=== PATIENT | female | born 1995 | race Caucasian/White ===

== ENCOUNTER 2017-11-07 15:37 | Emergency (ER) | payer BC, OTHER ==
[~2017-11-07] VITALS: Ht 180.3 cm; Wt 104.3 kg
[~2017-11-07 15:37] MED LIST: ADVIL200 MG PO; AMOXICILLIN875 MG PO; BENADRYL25 MG PO; CLARITIN10 M2 PO; CLARITIN10 MG PO; IBUPROFEN600 MG PO; IBUPROFEN800 MG PO; METFORMIN HCL500 MG PO; MULTIVITAMINS1 EAC7 PO; NAPROXEN500 MG PO; NICORETTE2 MG MM; NORCO 5-325 TA1 EACH PO; PERCOCET 5-3251 EACH PO; PREDNISONE20 MG PO; TYLENOL WITH C1 EACH PO; VITAMIN D250000 UNIT PO; ZITHROMAX250 MG PO; ZYRTEC10 MG PO
[2017-11-07] MEDS ORDERED: PNV PRENATAL P1 EACH PO (15:53)
[2017-11-07] MEDS ORDERED: RANITIDINE HCL300 M1 PO (15:54)
[2017-11-07] MEDS ORDERED: FLUOXETINE HCL20 MG PO (15:54)
--- OUTSIDE RECORDS SUMMARY | 2017-11-07 16:29 | XMS | Encounter Summary ---
Demographics + + + | Address | [address] | | | [place] [address] | + + + | Home Phone | | + + + | Preferred Language | Unknown | + + + | Marital Status | Single | + + + | Sabianist Affiliation | Latter-Day | + + + | Race | White | + + + | Ethnic Group | Not or | + + + Author + + + | Author | [facility] | + + + | Organization | [facility] | + + + | Address | Unknown | + + + | Phone | Unavailable | + + + Support + + +---------+ + | Name | Relationship | Address | Phone | + + +---------+ + | JAEL FREIRE | ECON | Unknown | | + + +---------+ + Care Team Providers + +------+ + | Care Business Director Name | Role | Phone | + +------+ + | Frederick Byrd DO | PCP | | + +------+ + Reason for Visit +--------+ + | Reason | Comments | +--------+ + | Rash | | +--------+ + Encounter Details +--------+ + + + + | Date | Type | Department | Care Team | Description | +--------+ + + + + | 09/23/ | Emergency | [facility] | Maddy Robertson PA | Cellulitis of left | | 2018 | | Emergency Department | [address] | axilla (Primary Dx); | | | | [address] [facility] | [facility] [address] | Abscess of left | | | | [place] | [address] | axilla | | | | [address] | [place] [address] | | | | | [phone] | [phone] | | | | | | | | +--------+ + + + + Social History + +-------+ +--------+------+ | Tobacco Use | Types | Packs/Day | Years | Date | | | | | Used | | + +-------+ +--------+------+ | Current Every Day | | 0.5 | | | | Smoker | | | | | + +-------+ +--------+------+ + +---+---+---+ | Smokeless Tobacco: | | | | | Current User | | | | + +---+---+---+ + + +---------+ + | Alcohol Use | Drinks/We | oz/Week | Comments | | | ek | | | + + +---------+ + | No | | | | + + +---------+ + + + + | Sex Assigned at | Date Recorded | | | | + + + | Not on file | | + + + as of this encounter Last Filed Vital Signs + + + + | Vital Sign | Reading | Time Taken | + + + + | Blood Pressure | 139/74 | 09/23/2017 5:47 PM PST | + + + + | Pulse | 87 | 09/23/2017 5:47 PM PST | + + + + | Temperature | 36.8 C (98.3 F) | 09/23/2017 5:47 PM PST | + + + + | Respiratory Rate | 16 | 09/23/2017 5:47 PM PST | + + + + | Oxygen Saturation | 98% | 09/23/2017 5:47 PM PST | + + + + | Inhaled Oxygen | - | - | | Concentration | | | + + + + | Weight | - | - | + + + + | Height | - | - | + + + + | Body Mass Index | - | - | + + + + in this encounter Discharge Instructions Maddy Robertson PA - 09/23/2017Formatting of this note may be different from the original. It was a pleasure to see you today. You have been diagnosed with: ED Diagnosis(es) Diagnosis Description Comment Cellulitis of left axilla Cellulitis of left axilla Abscess of left axilla Abscess of left axilla The following attachments cannot be sent through Care Everywhere.Abscess, Incision And Elvira pacheco (Burkinan)in this encounter Medications at Time of Discharge + + +---------+---------+ + + | Medication | Sig. | Disp. | Refills | Start | End Date | | | | | | Date | | + + +---------+---------+ + + | FLUoxetine | | | 1 | 05/29/20 | | | (PROZAC) 10 mg | | | | 17 | | | capsule | | | | | | + + +---------+---------+ + + | | Take 1 tablet by | 8 | 0 | 09/23/19 | | | HYDROcodone-acetamin | mouth every 6 hours | tablet | | 18 | | | ophen (NORCO) 5-325 | as needed for Pain | | | | | | mg per | | | | | | | tabletIndications: | | | | | | | Cellulitis of left | | | | | | | axilla | | | | | | + + +---------+---------+ + + | ibuprofen | Take 1 tablet (800 | 30 | 0 | 07/06/20 | | | (ADVIL;MOTRIN) 800 | mg total) by mouth | tablet | | 17 | | | mg tablet | every 8 hours as | | | | | | | needed for Pain | | | | | + + +---------+---------+ + + | metFORMIN | | | 3 | 05/29/20 | | | (GLUCOPHAGE) 500 mg | | | | 17 | | | tablet | | | | | | + + +---------+---------+ + + | naproxen | Take 1 tablet (500 | 20 | 0 | 09/23/19 | | | (NAPROSYN) 500 mg | mg total) by mouth 2 | tablet | | 18 | | | tabletIndications: | times daily (with | | | | | | Cellulitis of left | meals) | | | | | | axilla | | | | | | + + +---------+---------+ + + | ranitidine | | | 1 | 04/30/20 | | | (ZANTAC) 300 mg | | | | 17 | | | capsule | | | | | | + + +---------+---------+ + + | clindamycin | Take 3 capsules (450 | 90 | 0 | 09/23/19 | | | (CLEOCIN) 150 mg | mg total) by mouth | capsule | | 18 | 8 | | capsuleIndications: | 3 times daily for 10 | | | | | | Cellulitis of left | days | | | | | | axilla | | | | | | + + +---------+---------+ + + as of this encounter Progress Notes Luna Finney CrMA - 09/23/2017 7:11 PM PSTThe wound culture grew Staphylococcus aureus ,w hich is susceptible to clindamycin, for which the patient was prescribed in the ED. No furth er action is necessary. Luna Finney CMA ([facility]) TPAD program (Test Pending at Discharge) [facility] [phone] this encounter Miscellaneous Notes ED Notes - Misty Oliveira CNA - 09/23/2017 7:06 PM PSTAbscess on left axilla diana ssed with dry gauze. ED Provider Notes - Maddy Robertson PA - 09/23/2017 6:32 PM PSTAssocia jenise Order(s): INCISION AND DRAINAGE (ED)Post-Procedure Diagnose(s): Abscess of left axillaFo rmatting of this note may be different from the original. Chief Complaint: Rash History: Rash This is a new problem. The current episode started 2 days ago. The problem has been gradual ly worsening. The problem is associated with an unknown factor. There has been no fever. Aff ected Location: left axilla and back. The pain is at a severity of 8/10. The pain has been c onstant since onset. Associated symptoms include itching and pain. Associated symptoms comme nts: Erythematous. She has tried antibiotic cream for the symptoms. The treatment provided n o relief. Home Medications Medication Sig FLUoxetine (PROZAC) 10 mg capsule ibuprofen (ADVIL;MOTRIN) 800 mg tablet Take 1 tablet (800 mg total) by mouth every 8 hours as needed for Pain metFORMIN (GLUCOPHAGE) 500 mg tablet ranitidine (ZANTAC) 300 mg capsule Allergies: Amoxicillin and Sulfa (sulfonamide antibiotics) No past medical history on file. No past surgical history on file. SH: The patient reports that she has been smoking. She has been smoking about 0.50 packs per day. She uses smokeless tobacco. She reports that she uses drugs, including Marijuana. S he reports that she does not drink alcohol. FH: No history of MRSA ROS: Review of Systems Constitutional: Negative for appetite change. HENT: Negative for congestion. Eyes: Negative for visual disturbance. Respiratory: Negative for shortness of breath. Cardiovascular: Negative for chest pain. Gastrointestinal: Negative for blood in stool. Endocrine: Negative for cold intolerance and heat intolerance. Genitourinary: Negative for difficulty urinating. Musculoskeletal: Negative for gait problem. Skin: Positive for itching and rash. Negative for color change. Allergic/Immunologic: Negative for immunocompromised state. Neurological: Negative for speech difficulty. Hematological: Does not bruise/bleed easily. Psychiatric/Behavioral: Negative for confusion. Physical Exam: BP 139/74 | Pulse 87 | Temp 36.8 C (98.3 F) | Resp 16 | SpO2 98% Physical Exam Constitutional: She is oriented to person, place, and time. She appears well-developed and well-nourished. She appears distressed. HENT: Head: Normocephalic. Nose: Nose normal. Eyes: Right eye exhibits no discharge. Left eye exhibits no discharge. No scleral icterus. Neck: Normal range of motion. Neck supple. Cardiovascular: Normal rate, regular rhythm and intact distal pulses. Pulmonary/Chest: Effort normal and breath sounds normal. No respiratory distress. She has n o wheezes. Abdominal: Soft. There is no tenderness. Musculoskeletal: Normal range of motion. She exhibits no tenderness. Lymphadenopathy: She has no cervical adenopathy. Neurological: She is alert and oriented to person, place, and time. Coordination normal. Skin: Skin is warm and dry. Multiple maculopapular erythematous lesions in left axilla with one larger 2cm x 1.5cm rais ed, erythematous, fluctuant, and warm lesion at 11 o'clock. No active bleeding or purulence. Psychiatric: She has a normal mood and affect. Her behavior is normal. Nursing note and vitals reviewed. Procedures: Incision and Drainage (ED) Date/Time: 09/23/2017 6:56 PM Performed by: MADDY ROBERTSON Authorized by: MADDY ROBERTSON Consent: Verbal consent obtained. Risks and benefits: risks, benefits and alternatives were discussed Consent given by: patient Type: abscess Location: left axilla. Anesthesia: local infiltration Anesthesia: Local Anesthetic: lidocaine 1% without epinephrine Anesthetic total: 3 mL Scalpel size: 11 Incision type: single straight Complexity: simple Drainage: purulent and bloody Drainage amount: moderate Packing material: 1/4 in gauze Patient tolerance: Patient tolerated the procedure well with no immediate complications Decision Support: 22 yo female here with concern for a rash in her left axilla that is red and painful. One lesion appears to be getting more painful and erythematous. No history of abscesses or MRSA, but her boyfriend is a MRSA carrier. One lesion found to be an abscess, which was I&D'd tod ay with culture pending. Will cover for MRSA. Return in 2 days for wound check and repack. I feel the patient is stable for discharge home. I have discussed the current diagnoses and plan with patient/guardian thoroughly. There are no further concerns or questions at this t bobby and patient/guardian expressed understanding of current hypotheses, plan, and potential changes in the future. Reviewed rationale for prescriptions and importance of monitoring condition for possible ad verse reactions. Encouraged discussion with pharmacist and reviewing prescription precaution s prior to starting new medications. Red flags warranting urgent or ED follow up discussed, and patient/guardian verbalized unde rstanding. ED Course: Pressure dressing applied. Diagnosis and Disposition: ED Diagnosis(es) Diagnosis Description Comment Cellulitis of left axilla Cellulitis of left axilla Abscess of left axilla Abscess of left axilla ED Triage Notes - Nando Kidd RN - 09/23/2017 5:46 PM PSTPt c/o rash under left arm that started two days ago. Pt is raised and painful.in this encounter Plan of Treatment Not on fileas of this encounter Procedures + +--------+ + + + | Procedure Name | Priori | Date/Time | Associated Diagnosis | Comments | | | ty | | | | + +--------+ + + + | INCISION AND | Routin | 09/23/2017 | Abscess of left | Results for this | | DRAINAGE (ED) | e | 6:32 PM | axilla | procedure are in the | | | | PST | | results section. | + +--------+ + + + in this encounter Results Culture Drainage/Exudate w Gram Stain (09/23/2017 6:59 PM) + + + + | Component | Value | Ref Range | + + + + | Final Report | Heavy growth Staphylococcus aureus | | | | !!!NOTE - This Staph aureus is a MRSA!!! | | | | (A) | | + + + + | Gram Stain | Gram stain performed at [facility], | | | | [address] [facility] [place]. 0-2 | | | | Mononuclear Cells (Lymphocytes, Monocytes) | | | | 1-3 Segmented Neutrophils ++ Gram positive | | | | cocci | | + + + + | Organism ID | Staphylococcus aureusComment: Microbiology | | | | tests performed at [facility] | | | | Services, [address] [facility], [place], [place] | | | | unless otherwise specified. | | + + + + + + + | Specimen | Performing Laboratory | + + + | Culture Specimen - | HL7 INTERFACE INBOUND RESULT | | Abscess | | + + + + + +--------+ + | Organism | Antibiotic | Method | Susceptibility | + + +--------+ + | Staphylococcus | Cefazolin | | Resistant | | aureus | | | | + + +--------+ + | Staphylococcus | Clindamycin | | Sensitive | | aureus | | | | + + +--------+ + +---+ + | | Comment: This | | | organism does not | | | have inducible | | | Clindamycin | | | resistance. | +---+ + + + +---+ + | Staphylococcus | Erythromycin | | Resistant | | aureus | | | | + + +---+ + | Staphylococcus | Oxacillin/Nafcillin | | Resistant | | aureus | | | | + + +---+ + | Staphylococcus | Trimethoprim/Sulfame | | Sensitive | | aureus | thoxazole | | | + + +---+ + | Staphylococcus | Tetracycline | | Sensitive | | aureus | | | | + + +---+ + | Staphylococcus | Vancomycin | | 1: Sensitive | | aureus | | | | + + +---+ + +---+ + | | Comment: Studies | | | show that MRSA's | | | with vancomycin | | | JOVANA's greater than 1 | | | microgram/ml may | | | need higher doses | | | for treatment. | +---+ + Incision and Drainage (ED) (09/23/2017 6:32 PM) + + | Narrative | + + | Maddy Robertson PA 09/24/2017 9:24 PM Incision and Drainage (ED) | | Date/Time: 09/23/2017 6:56 PM Performed by: MADDY ROBERTSON Authorized by: MADDY ROBERTSON | | Yuli Consent: Verbal consent obtained. Risks and benefits: risks, benefits and | | alternatives were discussed Consent given by: patient Type: abscess Location: left | | axilla. Anesthesia: local infiltration Anesthesia: Local Anesthetic: lidocaine 1% | | without epinephrine Anesthetic total: 3 mL Scalpel size: 11 Incision type: single | | straight Complexity: simple Drainage: purulent and bloody Drainage amount: | | moderate Packing material: / in gauze Patient tolerance: Patient tolerated the | | procedure well with no immediate complications | + + ED INFORMATION EXCHANGE (09/23/2017 5:45 PM) + + + + | Component | Value | Ref Range | + + + + | TALAT PID | ED Information Exchange | | + + + + | [facility] Care Guideline | NO | | + + + + + + + | Specimen | Performing Laboratory | + + + | | [facility]AL[facility] | + + + + + | Narrative | + + | ED/UCC VISIT TRACKING (3 MO.) Visit | | Date Location City | | ST Type Dx/Complaint | | -------- | | ------- ---- 09/23/2017 17:44 [facility] | | [facility] [place] Emergency -RASH 07/17/2017 | | 15:30 [facility] [place] Emergency -Cutaneous | | abscess of abdominal wall | | | | -INSECT BITE 07/06/2017 | | 19:09 [facility] [place] Emergency -Dysmenorrhea, | | unspecified | | | | -Cysts ED VISIT COUNT (12 MO.) | | Visits Location ------ --------- 4 [facility] | | [address] Total Note: Visits indicate | | total known visits. | | CARE | | PROVIDERS | | Name | | | | Phone Type Service Dates | | ---- | | | | ----- ---- ALIDA | | MICHAEL | | Unknown Primary Care Unknown - Current [facility] | | [facility] at [facility] | | CENTER Unknown Primary Care Unknown - Current | | [facility]AL[facility] has no Care Guidelines for this patient. | + + in this encounter Visit Diagnoses + + | Diagnosis | + + | Cellulitis of left axilla - Primary | + + | Cellulitis and abscess of upper arm and forearm | + + | Abscess of left axilla | + + | Cellulitis and abscess of upper arm and forearm | + + Admitting Diagnoses + + | Diagnosis | + + | Abscess of left axilla | + + | Cellulitis and abscess of upper arm and forearm | + + | Cellulitis of left axilla | + + | Cellulitis and abscess of upper arm and forearm | + +"
--- OUTSIDE RECORDS SUMMARY | 2017-11-07 16:29 | XMS | Clinical Summary ---
Demographics + + + | Address | [address] | | | [place] [address] | + + + | Home Phone | | + + + | Preferred Language | Unknown | + + + | Marital Status | Single | + + + | Nondenominational Affiliation | Jainism | + + + | Race | [...] Team Providers + +------+ + | Care Shellfish Processing Laborer Name | Role | Phone | + +------+ + | Frederick Byrd DO | PP | | + +------+ + Allergies + + + + + + | Active Allergy | Reactions | Severity | Noted | Comments | | | | | Date | | + + + + + + | Amoxicillin | Hives | Medium | 07/17/20 | | | | | | 17 | | + + + + + + | Sulfa (Sulfonamide | Other (See Comments) | Low | 07/17/20 | | | Antibiotics) | | | 17 | | + + + + + + Current Medications + + +--------+---------+------+------+-------+ | Prescription | Sig. | Disp. | Refills | Star | End | Statu | | | | | | t | Date | s | | | | | | Date | | | + + +--------+---------+------+------+-------+ | FLUoxetine | | | 1 | 09/2 | | Activ | | (PROZAC) 10 mg | | | | 7/20 | | e | | capsule | | | | 17 | | | + + +--------+---------+------+------+-------+ | ranitidine | | | 1 | 08/2 | | Activ | | (ZANTAC) 300 mg | | | | 9/20 | | e | | capsule | | | | 17 | | | + + +--------+---------+------+------+-------+ | metFORMIN | | | 3 | 09/2 | | Activ | | (GLUCOPHAGE) 500 mg | | | | 7/20 | | e | | tablet | | | | 17 | | | + + +--------+---------+------+------+-------+ | ibuprofen | Take 1 tablet (800 | 30 | 0 | 11/0 | | Activ | | (ADVIL;MOTRIN) 800 | mg total) by mouth | tablet | | 4/20 | | e | | mg tablet | every 8 hours as | | | 17 | | | | | needed for Pain | | | | | | + + +--------+---------+------+------+-------+ | | Take 1 tablet by | 8 | 0 | 01/2 | | Activ | | HYDROcodone-acetamin | mouth every 6 hours | tablet | | 2/20 | | e | | ophen (NORCO) 5-325 | as needed for Pain | | | 18 | | | | mg per | | | | | | | | tabletIndications: | | | | | | | | Cellulitis of left | | | | | | | | axilla | | | | | | | + + +--------+---------+------+------+-------+ | naproxen | Take 1 tablet (500 | 20 | 0 | 01/2 | | Activ | | (NAPROSYN) 500 mg | mg total) by mouth 2 | tablet | | 2/20 | | e | | tabletIndications: | times daily (with | | | 18 | | | | Cellulitis of left | meals) | | | | | | | axilla | | | | | | | + + +--------+---------+------+------+-------+ Active Problems Not on file Encounters +--------+ + + + + | Date | Type | Specialty | Care Team | Description | +--------+ + + + + | 09/23/ | Emergency | | Maddy Tolbert PA | Cellulitis of left | | 2017 | | | | axilla (Primary Dx); | | | | | | Abscess of left | | | | | | axilla | +--------+ + + + + from Last 3 Months Social History + +-------+ +--------+------+ | Tobacco [...] on file | | + + + Last Filed Vital Signs + + + [...] + + + + | Weight | 99.1 kg (218 lb 7.6 | 06/14/2017 2:20 PM PDT | | | oz) | | + + + + | Height | 177.8 cm (5' 10") | 07/17/2017 3:50 PM PST | + + + + | Body Mass Index | 31.35 | 06/14/2017 2:20 PM PDT | + + + + Plan of Treatment + + + + + | Health Maintenance | Due Date | Last Done | Comments | + + + + + | IMM HPV (1 - | | | | | Female 3 Dose | 8 | | | | Series) | | | | + + + + + | Tobacco Cessation | | | | | Counseling | 9 | | | + + + + + | HIV Screening | | | | | | 2 | | | + + + + + | IMM MCV4 () | | | | | | 3 | | | + + + + + | Tetanus | | | | | | 6 | | | + + + + + | IMM Influenza (#1) | | | | | | 7 | | | + + + + + | GC/Chlamydia | | 07/06/2017 | | | Screening | 8 | | | + + + + + Procedures + +--------+ + + + | [...] section. | + +--------+ + + + from Last 3 Months Results Culture Drainage/Exudate w Gram Stain (09/23/2017 [...] Gram Stain | Gram stain performed at [facility], | | | | [address] [address] [facility], [place]. 0-2 | | | | Mononuclear Cells (Lymphocytes, Monocytes) | | | | 1-3 Segmented Neutrophils ++ Gram positive | | | | cocci | | + + + + | Organism ID | Staphylococcus aureusComment: Microbiology | | | | [facility] | | | | Services, [address], [place] | | | | unless otherwise [...] | Narrative | + + | Maddy Tolbert PA 09/24/2017 9:24 PM Incision and Drainage (ED) | | Date/Time: 09/23/2017 6:56 PM Performed by: MADDY TOLBERT Authorized by: MADDY TOLBERT | Yuli Consent: Verbal consent obtained. Risks [...] Drainage amount: | | moderate Packing material: 09/05 in gauze Patient tolerance: Patient tolerated the [...] ------- ---- 09/23/2017 17:44 [facility] | | [place] Emergency -RASH 07/17/2017 | | 15:30 [facility] [place] Emergency -Cutaneous | | abscess of abdominal wall | | | | -INSECT BITE 07/06/2017 | | 19:09 [facility] [place] Emergency -Dysmenorrhea, | | unspecified | | | | -Cysts ED VISIT COUNT (12 MO.) | | Visits Location ------ --------- 4 [facility] [place] | | [address] [facility] [address] Total Note: Visits indicate | | total known visits. | | CARE | | PROVIDERS | | Name | | | | Phone Type Service Dates | | ---- | | | | ----- ---- AL[place] | | MICHAEL | | Unknown Primary Care Unknown - Current [facility] | | [facility] at [facility] | | [facility] Unknown Primary Care Unknown - Current | | [facility] has no Care Guidelines for this patient. | + + from Last 3 Months Insurance + +--------+ +--------+ + + | Payer | Benefi | Subscriber | Type | Phone | Address | | | t Plan | ID | | | | | | / | | | | | | | Group | | | | | + +--------+ +--------+ + + | BLUE CROSS | BLUE | [id number] | PPO | [phone] | [id number] | | | CROSS | [address] | | [phone] | [place] | | | [place] | | | | [phone] | | | PPP/PP | | | | | | | O | | | | | | | NETWOR | | | | | | | K | | | | | + +--------+ +--------+ + + | [place] | MEDICA | [id number] | Medica | [phone] [address] [address] | | | [place] | | id | [phone] | [place] [address] | | | DMAP | | | | | + +--------+ +--------+ + + + +--------+ +--------+ + + | Guarantor Name | Accoun | Relation to | Date | Phone | Billing Address | | | t Type | Patient | of | | | | | | | | | | + +--------+ +--------+ + + | MELLISA | Person | Self [birth year] Home: | [address] | | [place] | jj/Stevie | | 1994 | [phone] | [place] [address] | | | raffi | | | [phone] | | + +--------+ +--------+ + + Advance Directives Patient has advance directives. For more information, please contact:[employer] [place] [address]
--- OUTSIDE RECORDS SUMMARY | 2017-11-07 16:29 | XMS | Encounter Summary ---
Demographics + + + | Address | [address] | | | [place] [address] | + + + | Home Phone | | + + + | Preferred Language | Unknown | + + + | Marital Status | Single | + + + | Adventism Affiliation | Zoroastrian | + + + | Race | [...] Team Providers + +------+ + | Care Agricultural Production Engineer Name | Role | Phone | + [...] + | 09/23/ | Emergency | [facility] | Maddy Robertson PA | Cellulitis of left | | 2018 | | Emergency Department | [address] | axilla (Primary Dx); | | | | [address] [facility] [place] | [facility] [address] | Abscess of left | | | | [place] | [address] | axilla | | | | [address] | [place] [address] | | | | | [phone] | [phone] | | | | | | | [...] through Care Everywhere.Abscess, Incision And Elvira pacheco (Icelandic)in this encounter Medications at Time of Discharge [...] er action is necessary. Luna Finney CMA ([facility]) TPAD program (Test Pending at Discharge) [facility] [phone] this encounter Miscellaneous Notes [...] Gram Stain | Gram stain performed at [facility], | | | | [address] [facility] [place]. 0-2 | | | | Mononuclear Cells (Lymphocytes, Monocytes) | | | | 1-3 Segmented Neutrophils ++ Gram positive | | | | cocci | | + + + + | Organism ID | Staphylococcus aureusComment: Microbiology | | | | tests performed at [facility] | | | | Services, [address] [facility], [place], [place] | | | | unless otherwise [...] ------- ---- 09/23/2017 17:44 [facility] | | [place] Emergency -RASH 07/17/2017 | | 15:30 [facility] [place] Emergency -Cutaneous | | abscess of abdominal wall | | | | -INSECT BITE 07/06/2017 | | 19:09 [facility] [place] Emergency -Dysmenorrhea, | | unspecified | | | | -Cysts ED VISIT COUNT (12 MO.) | | Visits Location ------ --------- 4 [facility] | | [address] Total Note: Visits indicate | | total known visits. | | CARE | | PROVIDERS | | Name | | | | Phone Type Service Dates | | ---- | | | | ----- ---- ALIDA | | MICHAEL | | Unknown Primary Care Unknown - Current [facility] E | | [facility] at [facility] | | CENTER Unknown Primary Care Unknown [...]
--- OUTSIDE RECORDS SUMMARY | 2017-11-07 16:29 | XMS | Clinical Summary ---
Demographics + + + | Address | [address] | | | [place] [address] | + + + | Home Phone | | + + + | Preferred Language | Unknown | + + + | Marital Status | Single | + + + | Orthodox Affiliation | Nondenominational | + + + | Race | [...] Team Providers + +------+ + | Care Marker Delivery Name | Role | Phone | + [...] Gram Stain | Gram stain performed at [facility], | | | | [address] [facility], [place]. 0-2 | | | | Mononuclear Cells (Lymphocytes, Monocytes) | | | | 1-3 Segmented Neutrophils ++ Gram positive | | | | cocci | | + + + + | Organism ID | Staphylococcus aureusComment: Microbiology | | | | [facility] | | | | Services, [address], [place] | | | | unless otherwise [...] ------- ---- 09/23/2017 17:44 [facility] | | [place] Emergency -RASH 07/17/2017 | | 15:30 [facility] [place] Emergency -Cutaneous | | abscess of abdominal wall | | | | -INSECT BITE 07/06/2017 | | 19:09 [facility] [place] Emergency -Dysmenorrhea, | | unspecified | | | | -Cysts ED VISIT COUNT (12 MO.) | | Visits Location ------ --------- [facility] [place] | | 1 [facility] [place] [facility] Total Note: Visits indicate | | total known visits. | | CARE | | PROVIDERS | | Name | | | | Phone Type Service Dates | | ---- | | | | ----- ---- [place] | | MICHAEL | | Unknown Primary Care Unknown - Current FREDERICK E | | [place] at [facility] | | [place] Unknown Primary Care Unknown - Current | [...] + | BLUE CROSS | BLUE | [id number] | PPO | [phone] | [address] | | | CROSS | 3 | | [phone] | [place] | | | [place] | | | | [phone] | | | PPP/PP | | | | | | | O | | | | | | | NETWOR | | | | | | | K | | | | | + +--------+ +--------+ + + | [place]ID [place] | MEDICA | [id number] | Medica | [phone] [address] [address] | | | [place] | | id | [phone] | [place] [address] | | | DMAP | | | [...] | [birth year] | Home: | [address] | | F[place] BEAN | jj/Stevie | | 1994 | [phone] | [place] [address] | | | raffi | | | [phone] | | + +--------+ +--------+ + + Advance Directives Patient has advance directives. For more information, please contact:[employer] [place] [address]
== END 2017-11-07 16:35 | disposition home or self-care (01) ==
LOC: ED 15:37
DX: N92.1 Excessive and frequent menstruation with irregular cycle (principal); E28.2 Polycystic ovarian syndrome; F17.200 Nicotine dependence, unspecified, uncomplicated; Z88.2 Allergy status to sulfonamides; Z88.1 Allergy status to other antibiotic agents; Z79.84 Long term (current) use of oral hypoglycemic drugs
CPT/HCPCS: 80053; 81001; 84703; 85025; 99283

== ENCOUNTER 2017-12-12 17:28 | Emergency (ER) | payer BC, OTHER ==
[~2017-12-12] VITALS: Ht 180.3 cm; Wt 104.3 kg
[~2017-12-12 17:28] MED LIST changes: +FLUOXETINE HCL20 MG PO; +PNV PRENATAL P1 EACH PO; +RANITIDINE HCL300 M1 PO
[2017-12-12] MEDS ORDERED: KEFLEX500 MG PO (17:41)
[2017-12-12] MEDS ORDERED: ULTRAM50 MG PO (17:42)
[2017-12-12] MEDS ORDERED: NORCO 5-325 TA1 EACH PO (17:42)
[2017-12-12] MEDS ORDERED: IBUPROFEN200 MG PO (17:44)
[2017-12-12] MEDS ORDERED: LEVAQUIN500 MG PO (19:09)
== END 2017-12-12 19:57 | disposition home or self-care (01) ==
LOC: ED 17:28
DX: J06.9 Acute upper respiratory infection, unspecified (principal); F32.9 Major depressive disorder, single episode, unspecified; F17.200 Nicotine dependence, unspecified, uncomplicated; Z88.2 Allergy status to sulfonamides; Z88.0 Allergy status to penicillin; Z91.018 Allergy to other foods; Z79.84 Long term (current) use of oral hypoglycemic drugs; Z79.899 Other long term (current) drug therapy; Z79.2 Long term (current) use of antibiotics
CPT/HCPCS: 80053; 81001; 83605; 85025; 87502; 96374; 96375; 99283; J1885; J2405; J7030

== ENCOUNTER 2018-01-14 02:26 | Emergency (ER) | payer BC, OTHER ==
[~2018-01-14] VITALS: Ht 180.3 cm; Wt 104.3 kg
[~2018-01-14 02:26] MED LIST changes: +IBUPROFEN200 MG PO; +KEFLEX500 MG PO; +LEVAQUIN500 MG PO; +ULTRAM50 MG PO
--- NOTE | 2018-01-14 15:09 | EKG ---
[facility] [address] [facility] [place] [address] Signed Normal sinus rhythm Possible Left atrial enlargement Septal infarct , age undetermined Abnormal ECG When compared with ECG of 17-NOV-2016 17:25, Septal infarct is now present Nonspecific T wave abnormality has replaced inverted T waves in Inferior leads Confirmed by PATSY LAM MD ([id number]) on 01/14/2018 3:08:54 PM Electronically Signed By: PATSY LAM MD 01/14/18 1509 PATIENT NAME: MELLISA BEANFELICITA Electrocardiogram DATE OF : [birth year] PHYSICIAN: PATSY LAM MD REPORT #: [id number] REPORT IS CONFIDENTIAL AND NOT TO BE RELEASED WITHOUT AUTHORIZATION
== END 2018-01-14 08:20 | disposition home or self-care (01) ==
LOC: ED 02:26
DX: T45.0X1A Poisoning by antiallergic and antiemetic drugs, accidental (unintentional), initial encounter (principal); F32.9 Major depressive disorder, single episode, unspecified; F17.200 Nicotine dependence, unspecified, uncomplicated; Z88.2 Allergy status to sulfonamides; Z88.0 Allergy status to penicillin; Z91.018 Allergy to other foods; Z79.84 Long term (current) use of oral hypoglycemic drugs; Z79.899 Other long term (current) drug therapy
CPT/HCPCS: 80053; 80076; 80176; 81001; 82977; 83615; 84443; 84703; 85025; 93005; 93010; 99284; G0480